=== PATIENT | female | born 1980 | race Caucasian/White ===

== ENCOUNTER 2020-05-14 22:25 | Emergency (ER) | payer OTHER, SELFPAY ==
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
--- NOTE | ~2020-05-14 | US_ITS ---
EXAMINATION: US arterial duplex LE EXAM DATE: 05/15/2020 02:45 INDICATION: Abnormal CT with left common femoral arterial injury, dissection. TECHNIQUE: Left lower extremity arterial Doppler performed. Correlation is made to CT same date. FINDINGS: There is a left groin complex cystic region consistent with hematoma seroma measured at 10 .3 x 4.9 x 7.4 cm. No vascularity to this, no evidence of pseudoaneurysm. There is normal arterial signal Doppler waveform within the left common femoral artery. There is shor t segment dissection flap identified, with elevated velocity at this location of 233 cm/s, probably d ue to narrowing of the true lumen. Otherwise the arterial Doppler velocities are within normal limits, reported in cm/s: CERTIFIED SURGICAL TECHNOLOGIST proximally 149, mid 151, distal 233, profunda 71, SFA proximally 95, mid 48, distally 32, popliteal 27, posterio r tibial 17, peroneal 11, anterior tibial 20, dorsalis pedis 20. IMPRESSION: Left common femoral arterial injury with short dissection flap. Overlying hematoma/serom a. Reviewed, dictated and finalized at location B. NDS/MAINTENANCE SPECIALIST IMPRESSION: Left common femoral arterial injury with short dissection flap. Ov erlying hematoma/seroma.
--- NOTE | ~2020-05-14 | XR_ITS ---
EXAMINATION: XR tibia fibula LT 2V INDICATION: Left leg pain TECHNIQUE: Two views of the left tibia and fibula are obtained. COMPARISON: None available FINDINGS: There is a healed oblique fracture of the distal tibia. No acute fracture, dislocation, or subluxation are identified. Alignment at the ankle and knee is normal. The soft tissues are unremarka ble. IMPRESSION: 1. No acute osseous abnormality. Reviewed, dictated and finalized at location A. FARM LABORER
[2020-05-14 22:34] VITALS: BP 129/64; PULSE 83; RESP 16; TEMP 36.2; O2SAT 98
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
[2020-05-14] MEDS: ONDANSETRON INJ 4 MG/2 ML VIAL IV PUSH (23:43)
[2020-05-14] MEDS: MORPHINE SULFATE (*CRX) 2 MG/ML INJ IV PUSH (23:43)
[2020-05-14 23:52] LABS: Basophils Absolute Auto 0.1 K/mm3 (0.0-0.1); Basophils Percent Auto 0.9 % (0.2-1.2); Eosinophils Absolute Auto 0.3 K/mm3 (0-0.3); Eosinophils Percent Auto 2.9 % (0-4.4); Hematocrit 33.5 % (37.0-47.0); Hemoglobin 10.8 g/dL (12.0-15.0); Immature Granulocyte Absolute 0.03 K/mm3 (0.00-0.031); Immature Granulocyte Percent A 0.3 % (0-0.5); Lymphocytes Absolute Auto 3.17 K/mm3 (0.9-3.2); Mean Corpuscular HGB Conc 32.2 g/dl (32-36); Mean Corpuscular Volume 90.1 fl (80-100); Monocytes Absolute Auto 0.8 K/mm3 (0.1-0.6); Monocytes Percent Auto 7.5 % (2.6-8.5); Neutrophils Absolute Auto 6.2 K/mm3 (1.3-6.7); Neutrophils Percent Auto 58.4 % (45.5-73.1); Platelet Count Result 379 k/mm3 (150-375); Red Blood Count 3.72 M/mm3 (4.2-5.4); Red Cell Distribution Width 14.7 % (11.5-14.5); White Blood Count 10.6 K/mm3 (4.5-10.0)
[2020-05-15 00:07] LABS: Alanine Aminotransferase 25 U/L (4-35); Albumin Level 4.1 g/dL (3.5-5.1); Alkaline Phosphatase 64 U/L (38-126); Anion Gap 6 mmol/L (8-16); Aspartate Amino Transferase 26 U/L (14-36); Bilirubin,Total 0.3 mg/dL (0.2-1.3); Blood Urea Nitrogen 18 mg/dL (7-17); Calcium 9.5 mg/dL (8.4-10.2); Carbon Dioxide 29 mmol/L (22-30); Chloride 104 mmol/L (98-107); Estimated CRCL calculation 96 ml/min; Estimated Glomerular Filt Rate > 60; Glucose 95 mg/dL (65-105); Potassium 3.9 mmol/L (3.4-5.0); Sodium 139 mmol/L (137-145)
[2020-05-15] MEDS: HYDROmorphone HCL INJ (*CRX) 1 MG/ML SYR 0.5 MG IV PUSH ×2 (01:06→03:36)
[2020-05-15] MEDS: HYDROcodone/acetaminophen (*CRX) 5-325 MG TABLET 1 TAB PO (01:06)
[2020-05-15 03:43] VITALS: BP 128/72; PULSE 78; RESP 16; O2SAT 99
== END 2020-05-15 04:05 | disposition home or self-care (01) ==
PROVIDERS: Emergency Provider Emergency Medicine
DX: S30.1XXA Contusion of abdominal wall, initial encounter (principal); V86.55XA Driver of 3- or 4- wheeled all-terrain vehicle (ATV) injured in nontraffic accident, initial encounter
CPT/HCPCS: 36415; 73590; 74177; 80053; 85025; 93926; 96374; 96375; 96376; 99284; A9270; J1170; J2270; J2405; Q9967

== ENCOUNTER 2021-12-25 09:35 | Inpatient (IN) | payer OTHER, SELFPAY ==
--- NOTE | ~2021-12-25 | CT_ITS ---
EXAMINATION: CT abdomen pelvis wo con DATE: 12/27/2021 10:05 INDICATION: persistant upper mid abd pain radiating to the left TECHNIQUE: Computed tomography (CT) of the abdomen and pelvis was performed without intravenous contr ast. Automated exposure control and iterative reconstruction technique were employed. The dose-length product was 793.12 mGy-cm. COMPARISON: 12/25/2021. FINDINGS: Lower thorax: Unremarkable Liver: Normal. Biliary/Gallbladder: Gallbladder is normal. Spurious contrast excretion. No bile duct dilation. Pancreas: Cystic lesion in the pancreatic body, stable given change in technique. Slightly increased peripancreatic inflammatory change/fluid. Spleen: Normal. Adrenals:Stable low-density left adrenal lesions. Kidneys: Multiple bilateral renal calculi. No mass or hydronephrosis. GI tract: No small or large bowel dilation. Normal appendix. Mesentery/Peritoneum: No ascites, mass, or free air. Retroperitoneum: No mass. Pelvis: Pelvic organs are within normal limits. Soft Tissues: Soft tissues and body wall unremarkable. Bones: No acute osseous finding. IMPRESSION: Slightly increased peripancreatic inflammatory change/fluid. Likely pseudocyst in the pancreatic body , stable. Reviewed, dictated and finalized at location K. IMPRESSION: Slightly increased peripancreatic inflammatory change/fluid. Likely pseudocyst in the pancreatic body, stable.
--- NOTE | ~2021-12-25 | US_ITS ---
EXAMINATION: US abdomen limited DATE: 12/25/2021 15:45 INDICATION: Pancreatitis. TECHNIQUE: Multiple grayscale and Doppler ultrasound images of the abdomen were obtained. COMPARISON: CT 12/25/2021 FINDINGS: The visualized portions of the head and body of the pancreas are normal. The liver is cisco l without focal lesion. There is normal flow in main portal vein. The gallbladder is normal in size. No gallstones or gallbladder wall thickening. There was no sonographic Poole sign. The common duct i s normal and measures 4 mm. There are nonobstructing stones in right kidney. IMPRESSION: 1. Normal gallbladder and common duct. Reviewed, dictated and finalized at location B.
--- NOTE | ~2021-12-25 | XR_ITS ---
EXAMINATION: XR chest 2V 12/25/2021 10:15 INDICATION: Shortness of breath. Right lateral chest pain. PROCEDURE: 2 view chest COMPARISON: No prior studies for comparison. FINDINGS: The lungs are clear. The cardiomediastinal silhouette is within normal limits. There are no pleural effusions. There is no pneumothorax suspected. IMPRESSION: 1: NO ACUTE CARDIOPULMONARY DISEASE. Reviewed, dictated and finalized at location A.
--- NOTE | ~2021-12-25 | CT_ITS ---
EXAMINATION: CTA chest PE abdomen pel DATE: 12/25/2021 11:12 INDICATION: Chest pain and dyspnea TECHNIQUE: Computed tomography (CT) pulmonary angiogram of the chest was performed with 100 mL Omnipa que-350 intravenous contrast. Additional 3D reconstructions utilizing coronal maximum intensity proje ction (MIP) were performed. CT of the abdomen and pelvis was performed with intravenous contrast util izing the same contrast bolus following a short delay. Automated exposure control and iterative recon struction technique were employed. The dose-length product was 1322.43 mGy-cm. COMPARISON: None FINDINGS: Chest: Excellent contrast opacification of the pulmonary arteries. There is mild streak artifact from dense contrast in the superior vena cava and right atrium. No significant motion artifact yielding diagnost ic quality study which demonstrates no pulmonary embolism. No pneumonia, suspicious pulmonary nodules , pulmonary edema or pleural effusion. Heart size is normal. No pericardial or pleural effusion. No p athologically enlarged thoracic lymphadenopathy. Wall thickening in the distal esophagus which could be seen with esophagitis. Bones are unremarkable. Abdomen/pelvis: Liver, gallbladder and spleen are normal. Increase in size of a now 2.1 cm cystic lesion without enha ncing soft tissue component in the body of the pancreas. There is inflammatory stranding surrounding the body and tail of the pancreas consistent with acute interstitial pancreatitis suggesting the cyst ic lesion represents a pseudocyst. Diffuse adrenal nodules the largest measuring 1.9 cm at the left a drenal gland with additional 7 mm nodular left adrenal gland and 6 mm nodule in the right adrenal gla nd. 1.8 cm left renal cyst. Bilateral nonobstructing nephrolithiasis with 8 stones in the right kidne y the largest measuring up to 6 mm and 11 stones in the left kidney the largest measuring 8 mm. Urete rs and bladder are normal with no evident urolithiasis. Anteverted uterus is normal with mild scarrin g in the fat anterior to the uterus and intrapelvic wall suggesting prior section. Bones are normal. No free intraperitoneal gas or fluid. No pathologically enlarged abdominal or pelvic lymphad enopathy. Unchanged right supra-acetabular bone island. 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 IMPRESSION: 1. No pulmonary disease or other acute cardiopulmonary disease. 2. Acute interstitial pancreatitis with interval enlargement of a 2.1 cm cystic lesion at the body of the pancreas most likely a pancreatic pseudocyst. 3. Bilateral nonobstructing nephrolithiasis. 4. Wall thickening in the distal esophagus suggesting esophagitis. Reviewed, dictated and finalized at location A.
[2021-12-25 09:39] VITALS: BP 142/86; PULSE 77; RESP 13; TEMP 36.6; O2SAT 100
--- NOTE | 2021-12-25 09:39 | ECG_ITS ---
Measurements Intervals [place] Rate: 75 P: -11 LA: 136 QRS: 20 QRSD: 113 T: 12 QT: 364 QTc: 407 Interpretive Statements SINUS RHYTHM INCOMPLETE RIGHT BUNDLE BRANCH BLOCK [90+ ms QRS DURATION, TERMINAL R IN V1/V2, 40+ ms S IN I/aVL/V4/V5/V6] NO PREVIOUS ECG AVAILABLE FOR COMPARISON Electronically Signed On 12-25-2021 14:40:34 CDT by Fran Rogers M.D.
--- NOTE | 2021-12-25 10:01 | ED.GENADULT ---
HPI - General Adult General Chief complaint: Shortness of Breath/Dyspnea Stated complaint: SOB Time Seen by Provider: 12/25/21 09:41 Source: RN notes reviewed History of Present Illness HPI narrative: Patient presents emergency department from home for shortness of breath. Patient states that shortness of breath began today afternoon she states it feels like she cannot take a deep breath and associated with a tightness across her lower chest patient states that she did have coughing last week but is not had any coughing this week she denies any fevers or chills abdominal pain nausea vomiting diarrhea or any other symptoms. Related Data Home Medications Medication Instructions Recorded Confirmed ibuprofen 200 mg capsule 200 mg PO Q6H PRN 05/19/20 05/23/20 Allergies Allergy/AdvReac Type Severity Reaction Status Date / Time No Known Allergies Allergy Verified 12/25/21 09:44 Review of Systems Review of Systems: Gen.: Denies fevers or chills ENT: Denies congestion Respiratory: See HPI CV: Reports chest pain GI: Denies abdominal pain nausea, emesis or diarrhea Musculoskeletal: Denies back pain or muscle pain Neuro: Denies numbness, tingling, weakness or focal weakness Skin: Denies rash Except as documented, all other systems reviewed and negative PMFSH Past Medical History Medical History History of kidney stones Surgical History Surgical History History of delivery x2 History of removal of cyst neck Family History Family History Father , age 58 Diabetes mellitus Lymphoma Grandparent , age 93 Heart disease Cerebrovascular accident Social History Social History Smoking status: Never smoker Alcohol intake: never Additional occupation/education comments: Nurse Exam Narrative: APPEARANCE: No acute distress, nontoxic, resting in bed EYES: EOMI HEENT: Normocephalic, atraumatic, OMM RESPIRATORY: No respiratory distress Clear to auscultation bilaterally with no rhonchi wheezing or rales. CARDIOVASCULAR: Regular rate and rhythm without murmurs rubs or gallops. ABDOMINAL: Soft, nontender, nondistended, no rebound or guarding MUSCULOSKELETAl: Moves all extremities. No clubbing, cyanosis or edema. NEURO: Awake and alert. Following commands, speech normal, no focal deficits SKIN:: Warm, dry. No rashes lesions or abrasions PSYCHIATRIC: Normal affect/mood, Course Course Emergency Course: Following lab results are discussed with patient she denies any regular alcohol use states she has been having increased ibuprofen use secondary to back pain and menstrual cycle Discussed with Dr. Celis who agrees with admission request GI consult Discussed with Dr Galindo agrees with consult Discussed with patient and family results of workup and diagnosis. Discussed need for admission. Patient and family understand and agree to current treatment plan Vital Signs Vital signs: Vital Signs Temperature 98 F 12/25/21 09:39 Pulse Rate 77 12/25/21 09:39 Respiratory Rate 13 12/25/21 09:39 Blood Pressure 142/86 H 12/25/21 09:39 Pulse Oximetry 100 12/25/21 09:39 Oxygen Delivery Room Air 12/25/21 09:39 Temperature 98 F 12/25/21 09:39 Pulse Rate 77 12/25/21 09:39 Respiratory Rate 13 12/25/21 09:39 Blood Pressure 142/86 H 12/25/21 09:39 Pulse Oximetry 100 12/25/21 09:39 Oxygen Delivery Room Air 12/25/21 09:39 Medical Decision Making Vital Signs Vital Signs: Vital Signs Temperature 98 F 12/25/21 09:39 Pulse Rate 77 12/25/21 09:39 Respiratory Rate 13 12/25/21 09:39 Blood Pressure 142/86 H 12/25/21 09:39 Pulse Oximetry 100 12/25/21 09:39 Oxygen Delivery Room Air 12/25/21 09:39 Temperature
[2021-12-25 10:09] LABS: Basophils Absolute Auto 0.1 K/mm3 (0.0-0.1); Basophils Percent Auto 0.5 % (0.2-1.2); Eosinophils Absolute Auto 0.1 K/mm3 (0-0.3); Eosinophils Percent Auto 0.8 % (0-4.4); Hematocrit 36.5 % (37.0-47.0); Hemoglobin 11.8 g/dL (12.0-15.0); Immature Granulocyte Absolute 0.03 K/mm3 (0.00-0.031); Immature Granulocyte Percent A 0.3 % (0-0.5); Lymphocytes Absolute Auto 1.86 K/mm3 (0.9-3.2); Lymphocytes Percent Auto 18.3 % (18.3-44.2); Mean Corpuscular HGB Conc 32.3 g/dl (32-36); Mean Corpuscular Hemoglobin 28.6 pg (26-34); Mean Corpuscular Volume 88.4 fl (80-100); Mean Platelet Volume 10.4 fl (7.4-10.4); Monocytes Absolute Auto 0.8 K/mm3 (0.1-0.6); Monocytes Percent Auto 7.5 % (2.6-8.5); Neutrophils Absolute Auto 7.4 K/mm3 (1.3-6.7); Neutrophils Percent Auto 72.6 % (45.5-73.1); Platelet Count Result 344 k/mm3 (150-375); Red Blood Count 4.13 M/mm3 (4.2-5.4); Red Cell Distribution Width 13.6 % (11.5-14.5); White Blood Count 10.2 K/mm3 (4.5-10.0)
[2021-12-25 10:18] LABS: INR 0.9; Prothrombin Time 12.1 Seconds (11.1-14.7)
[2021-12-25 10:19] LABS: Partial Thromboplastin Time 30.6 SECONDS (22.3-36.8)
[2021-12-25 10:22] LABS: Alanine Aminotransferase 20 U/L (6-35); Albumin Level 4.3 g/dL (3.5-5.1); Alkaline Phosphatase 96 U/L (38-126); Anion Gap 3 mmol/L (8-16); Aspartate Amino Transferase 25 U/L (14-36); Bilirubin,Total 0.4 mg/dL (0.2-1.3); Blood Urea Nitrogen 13 mg/dL (7-17); Calcium 9.5 mg/dL (8.4-10.2); Carbon Dioxide 25 mmol/L (22-30); Chloride 111 mmol/L (98-107); Estimated CRCL calculation 106 ml/min; Estimated Glomerular Filt Rate > 60; Glucose 112 mg/dL (65-110); Potassium 3.9 mmol/L (3.4-5.0); Sodium 139 mmol/L (137-145)
[2021-12-25 10:33] LABS: Troponin I < 0.012 ng/mL (0.000-0.034)
[2021-12-25 10:58] LABS: Lipase 4369 U/L (23-300)
[2021-12-25] MEDS: MORPHINE SULFATE (*CRX) 4 MG/ML INJ IV PUSH (11:25)
[2021-12-25] MEDS: SODIUM CHLORIDE 0.9% IV 1,000 ML 999 ML IV CONT (11:25)
[2021-12-25 11:49] VITALS: BP 140/68; PULSE 78; RESP 18; O2SAT 99
--- NOTE | 2021-12-25 11:55 | PM.IMHP ---
H&P: HPI History of Present Illness Date/Time: 12/25/21 11:55 Chief Complaint: Shortness of breath and dyspnea Narrative: Patient is a 41-year-old female with a past medical history of renal stones. Patient presented to the emergency department with complaints of shortness of breath. She reports that the shortness of breath began this afternoon as she is unable to take a deep breath and associated with tightness across her lower chest. Patient report indicates she has a cough for the last week but nonproductive. She denies any fever, chills, nausea, vomiting upset stomach or diarrhea. While in the emergency department labs and imaging were obtained. Patient had a WBC of 10.2, hemoglobin 11.8, hematocrit 36.5, platelet 344, normal INR and PT. D-dimer mildly elevated at 0.5 and a sodium of 139, potassium 3.9, chloride 111, BUN 13, creatinine 0.7 and normal LFTs with a negative troponin. Chest x-ray did not reveal acute cardiopulmonary abnormality. CTA of the chest abdomen and pelvis did not reveal acute pulmonary disease. Did reveal acute interstitial pancreatitis with interval enlargement of 2.1 cm cystic lesion at the body of the pancreas most likely pancreatic pseudocyst. Bilateral nonobstructing nephrolithiasis some wall thickening the distal esophagus suggesting esophagitis. Dr. Artis with gastroenterology was consulted and will follow in consultation at upon admission. Patient endorsed increase ibuprofen use due to back pain and menstrual cycles. She denies any alcohol use. Patient did have an elevated lipase of 4369. Gastroenterology is following the patient. Patient will be made NPO and administered IV fluids. 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 Mental Status: Awake, alert and oriented to person, place, and time with clear speech. Skin: Skin in warm, dry and intact without rashes or lesions. Head: Normocephalic and atraumatic. Eyes: Conjunctivae are clear without exudates or hemorrhage. Sclera is non-icteric. EOM are intact, PERRLA. Ears: The external ear and canal are non-tender and without swelling or discharge. Nose: Nasal mucosa is pink and moist. Septum midline. Nares patent bilaterally. Throat: Oral mucosa pink and moist with good dentition. Tongue midline. Neck: The neck supple without adenopathy. Trachea midline. No JVD. Cardiac: S1 and S2 regular rate and rhythm. No murmurs, gallops, or rubs auscultated. Respiratory: Chest wall symmetric, nontender and without deformity or trauma. Respirations even and unlabored. Lung sounds are clear to auscultation in all lobes bilaterally without wheezes
[2021-12-25] MEDS: MORPHINE SULFATE (*CRX) 2 MG/ML INJ IV PUSH (13:02)
[2021-12-25] MEDS: SODIUM CHLORIDE 0.9% IV 1,000 ML 150 ML IV CONT (13:06)
[2021-12-25] MEDS: ONDANSETRON INJ 4 MG/2 ML VIAL IV PUSH ×2 (13:10→18:35)
[2021-12-25] MEDS: HYDROmorphone HCL INJ (*CRX) 1 MG/ML SYR 0.5 MG IV PUSH ×4 (13:55→23:17)
--- NOTE | 2021-12-25 14:03 | WPDGICN ---
Assessment and Plan Assessment and plan (1) Acute pancreatitis: Code(s): K85.90 - Acute pancreatitis without necrosis or infection, unspecified Status: Acute Assessment and Plan: In the emergency room she was found have pancreatitis with an elevated lipase, 4369. CT scan confirms pancreatitis. She states that she was in [place] last weekend. She was shopping in eating a little more than usual, enjoying the restaurants. She was not drinking any alcohol and affect does not drink at all. She states that on Tuesday she began having a twisting type feeling in the subxiphoid area as though something was being twisted. The pain persisted all week. She began taking ibuprofen several times a day thinking that would help. By yesterday the pain was also being felt across her back. It is continuous. She tried eating but has not eaten much this week because it hurts worse when she does eat. because she does not drink alcohol, gallbladder disease is a high probability. I will order an ultrasound of the right upper quadrant. Also I will check her lipids and antinuclear antibody. (2) History of kidney stones: Code(s): Z87.442 - Personal history of urinary calculi Status: Acute Assessment and Plan: She states that when the pain 1st began she was having some discomfort in the suprapubic area and thought that it may be related to her history of kidney stones but after taking a couple of doses of antibiotic that pain went away and has not returned GI Consult Note Consult date/time: 12/25/21 14:03 HPI: Elizabeth Capone is a 41 year old female was admitted with acute abdominal pain which began 5 days ago. In the emergency room she was found have pancreatitis with an elevated lipase, 4369. CT scan confirms pancreatitis. She states that she was in [place] last weekend. She was shopping in eating a little more than usual, enjoying the restaurants. She was not drinking any alcohol and affect does not drink at all. She states that on Tuesday she began having a twisting type feeling in the subxiphoid area as though something was being twisted. The pain persisted all week. She began taking ibuprofen several times a day thinking that would help. By yesterday the pain was also being felt across her back. It is continuous. She tried eating but has not eaten much this week because it hurts worse when she does eat. She has not been vomiting but isn't nauseated. There has been no diarrhea. She has not had a fever or chills. She has no prior episodes of pancreatitis. She has no family history of gallbladder or pancreatic disease. Her weight has been stable. She denies other gastrointestinal symptoms such as chronic acid reflux, Change in bowel habits, weight loss, etc.. 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
[2021-12-25 14:21] LABS: Cholesterol 220 mg/dL (0-200); HDL Direct 39 mg/dL; Triglycerides 143 mg/dL (<150)
[2021-12-25 14:32] LABS: LDL Cholesterol Direct 148 mg/dL
[2021-12-25 14:33] VITALS: BMI 31.3
--- NOTE | 2021-12-25 14:36 | ADMGEN ---
This patient, Elizabeth Capone, was admitted to [facility] Surg Room 310-00 [id number]. Patient/family oriented to hospital policies and general routines including ID bracelet, bed and alarms, visiting hours, pain management, procedures, bathroom and other care routines, personal items, smoking policy, room service/diet, and visiting hours. Information on how to activate the Rapid Response Team has been discussed. Patient/Family are encouraged to report perceived risks to care and to ask questions if they do not understand what they are told or what they should do.
[2021-12-25 14:55] VITALS: BP 137/76; PULSE 77; RESP 18; TEMP 36.3; O2SAT 99
[2021-12-25 18:45] LABS: Add Urine Microscopic? YES; Appearance Urine Slightly Cloudy (Clear); Bilirubin Urine Negative (Negative); Blood Urine 2+ (Negative); Color Urine Yellow (Yellow); Glucose Urine UA Negative (Negative); Ketones Urine Negative (Negative); Leukocyte Esterase Ur Negative LEU/UL (NEGATIVE); Nitrate Urine Negative (Negative); Protein Urine Negative (Negative); Urobilinogen Urine 0.2 mg/dL (<2.0)
[2021-12-25 18:49] LABS: Mucus Urine Rare /lpf; RBC Urine 21-50 /hpf (0-2); Squamous Epithelial Cell Urine Many /hpf (Few); WBC Urine 0-3 /hpf (0-3)
[2021-12-25 20:35] VITALS: BP 125/80; PULSE 76; RESP 20; TEMP 36.4; O2SAT 98
[2021-12-26] MEDS: SODIUM CHLORIDE 0.9% IV 1,000 ML 150 ML IV CONT ×4 (01:00→21:20)
[2021-12-26] MEDS: HYDROmorphone HCL INJ (*CRX) 1 MG/ML SYR 0.5 MG IV PUSH ×5 (02:33→21:20)
[2021-12-26 05:50] VITALS: BP 133/79; PULSE 88; RESP 18; TEMP 36.7; O2SAT 99
[2021-12-26 06:04] LABS: Basophils Percent Auto 0.3 % (0.2-1.2); Eosinophils Percent Auto 0.3 % (0-4.4); Hematocrit 35.7 % (37.0-47.0); Hemoglobin 11.5 g/dL (12.0-15.0); Immature Granulocyte Absolute 0.04 K/mm3 (0.00-0.031); Immature Granulocyte Percent A 0.3 % (0-0.5); Lymphocytes Absolute Auto 1.37 K/mm3 (0.9-3.2); Lymphocytes Percent Auto 11.7 % (18.3-44.2); Mean Corpuscular HGB Conc 32.2 g/dl (32-36); Mean Corpuscular Hemoglobin 28.8 pg (26-34); Mean Corpuscular Volume 89.5 fl (80-100); Mean Platelet Volume 10.8 fl (7.4-10.4); Monocytes Absolute Auto 0.9 K/mm3 (0.1-0.6); Monocytes Percent Auto 7.6 % (2.6-8.5); Neutrophils Absolute Auto 9.4 K/mm3 (1.3-6.7); Neutrophils Percent Auto 79.8 % (45.5-73.1); Platelet Count Result 333 k/mm3 (150-375); Red Blood Count 3.99 M/mm3 (4.2-5.4); Red Cell Distribution Width 13.4 % (11.5-14.5); White Blood Count 11.7 K/mm3 (4.5-10.0)
[2021-12-26 06:23] LABS: Alanine Aminotransferase 17 U/L (6-35); Albumin Level 4.2 g/dL (3.5-5.1); Alkaline Phosphatase 89 U/L (38-126); Anion Gap 5 mmol/L (8-16); Aspartate Amino Transferase 19 U/L (14-36); Bilirubin,Total 0.6 mg/dL (0.2-1.3); Blood Urea Nitrogen 7 mg/dL (7-17); Calcium 8.6 mg/dL (8.4-10.2); Carbon Dioxide 28 mmol/L (22-30); Chloride 107 mmol/L (98-107); Estimated CRCL calculation 122 ml/min; Estimated Glomerular Filt Rate > 60; Glucose 103 mg/dL (65-110); Lipase 590 U/L (23-300); Potassium 3.7 mmol/L (3.4-5.0); Sodium 140 mmol/L (137-145)
[2021-12-26] MEDS: ONDANSETRON INJ 4 MG/2 ML VIAL IV PUSH ×2 (08:24→21:20)
--- NOTE | 2021-12-26 08:58 | PM.DS ---
DS: Admitting Diagnosis Discharge Date 12/28/2021 Admitting Diagnosis Pancreatitis DS: Discharge Diagnosis Discharge Diagnosis (1) Acute pancreatitis: Code(s): K85.90 - Acute pancreatitis without necrosis or infection, unspecified Status: Acute Assessment and Plan: Monitor vital signs, I and O's, check stool output, neuro status and patient is a fall risk Monitor serum electrolytes and CBC IV pain management Gentle IV fluid resuscitation Consult gastroenterology for further evaluation, appreciate assistance and recommendation Diet:NPO Diet was advanced and tolerated (2) Dyspnea: Code(s): R06.00 - Dyspnea, unspecified Status: Acute Assessment and Plan: Resolving (3) Pancreatic pseudocyst: Code(s): K86.3 - Pseudocyst of pancreas Status: Acute DS: Summary Hospital Course Reason for hospitalization: Acute pancreatitis Hospital Course: Patient is a 41-year-old female with a past medical history of renal stones.? Patient presented to the emergency department with complaints of shortness of breath.? She reports that the shortness of breath began this afternoon as she is unable to take a deep breath and associated with tightness across her lower chest.? Patient report indicates she has a cough for the last week but nonproductive.? She denies any fever, chills, nausea, vomiting upset stomach or diarrhea. While in the emergency department labs and imaging were obtained.? Patient had a WBC of 10.2, hemoglobin 11.8, hematocrit 36.5, platelet 344, normal INR and PT.? D-dimer mildly elevated at 0.5 and a sodium of 139, potassium 3.9, chloride 111, BUN 13, creatinine 0.7 and normal LFTs with a negative troponin.? Chest x-ray did not reveal acute cardiopulmonary abnormality.? CTA of the chest abdomen and pelvis did not reveal acute pulmonary disease.? Did reveal acute interstitial pancreatitis with interval enlargement of 2.1 cm cystic lesion at the body of the pancreas most likely pancreatic pseudocyst.? Bilateral nonobstructing nephrolithiasis some wall thickening the distal esophagus suggesting esophagitis.? Dr. Artis with gastroenterology was consulted and will follow in consultation at upon admission.? Patient endorsed increase ibuprofen use due to back pain and menstrual cycles.? She denies any alcohol use.? Patient did have an elevated lipase of 4369.? Gastroenterology is following the patient.? Patient will be made NPO and administered IV fluids. Patient received aggressive IV fluid resuscitation at 150 mL an hour and remained NPO. Her lipase significantly decreased to 590. On the day of discharge the patient reported that she feels significantly better. Denied acute abdominal pain. She did report some dry heaves and headache due to no caffeine intake. Patient reports she drinks tea daily. Patient was started on a clear liquid diet advanced as tolerated. Advised to follow up with Gastroenterology and her primary care physician within 2-4 weeks. Status at Discharge Cognitive/behavioral status at discharge: Alert and oriented x4 Time Spent with Patient Time attestation: Total time spent providing and/or coordinating discharge services: Exam Narrative: General: No acute distress. Mental Status: Awake, alert and oriented to person, place, and time with clear speech. Skin: Skin in warm, dry and intact without rashes or lesions. Head: Normocephalic and atraumatic. Eyes: Conjunctivae are clear without exudates or hemorrhage. Sclera is non-icteric. EOM are intact, PERRLA. Ears: The external ear and canal are non-tender and without swelling or discharge. Nose: Nasal mucosa is pink and moist. Septum midline. Nares patent bilaterally. Throat: Oral mucosa pink and moist with good dentition. Tongue midline. Neck: The neck supple without adenopathy. Trachea midline. No JVD. Cardiac: S1 and S2 regular rate and rhythm. No murmurs, gallops, or rubs auscultated. Respiratory: Chest wall symmetric,
--- NOTE | 2021-12-26 12:43 | PM.IMPN ---
Progress Note: A&P Assessment and Plan (1) Acute pancreatitis: Code(s): K85.90 - Acute pancreatitis without necrosis or infection, unspecified Status: Acute Assessment and Plan: Monitor vital signs, I and O's, check stool output, neuro status and patient is a fall risk Monitor serum electrolytes and CBC IV pain management Gentle IV fluid resuscitation Consult gastroenterology for further evaluation, appreciate assistance and recommendation Diet:NPO Diet was advanced and tolerated (2) Dyspnea: Code(s): R06.00 - Dyspnea, unspecified Status: Acute Assessment and Plan: Resolving Subjective Date/time seen: 12/26/21 12:43 Attempt to advance the patient's diet. She was unable tolerate a diet without having acute abdominal pain. Made NPO. Continue IV fluids. Monitor lipase and patient's clinical status. Review of Systems Review of Systems: All systems reviewed & are unremarkable except as noted in HPI and below Exam Narrative: General: No acute distress. Mental Status: Awake, alert and oriented to person, place, and time with clear speech. Skin: Skin in warm, dry and intact without rashes or lesions. Head: Normocephalic and atraumatic. Eyes: Conjunctivae are clear without exudates or hemorrhage. Sclera is non-icteric. EOM are intact, PERRLA. Ears: The external ear and canal are non-tender and without swelling or discharge. Nose: Nasal mucosa is pink and moist. Septum midline. Nares patent bilaterally. Throat: Oral mucosa pink and moist with good dentition. Tongue midline. Neck: The neck supple without adenopathy. Trachea midline. No JVD. Cardiac: S1 and S2 regular rate and rhythm. No murmurs, gallops, or rubs auscultated. Respiratory: Chest wall symmetric, nontender and without deformity or trauma. Respirations even and unlabored. Lung sounds are clear to auscultation in all lobes bilaterally without wheezes, rhonchi, or rales. Abdominal: Abdomen soft, round and non- tender to palpation. Bowel sounds present and normoactive in all 4 quadrants. Spine: Neck and back with grossly normal curvature, no deformity in appearance or signs of trauma. Extremities: Upper and lower extremities atraumatic without tenderness or deformity. Full range of motion and muscle strength 5/5 to all extremities bilaterally. Neurological: Full and symmetric motor and light touch sensation bilaterally. Cranial nerves II-XII grossly intact. Objective Data Vital Signs Vital Signs: Vital Signs - 24 hr 12/25/21 14:55 12/25/21 20:35 12/26/21 05:50 Temperature 97.3 F L 97.5 F L 98.1 F Pulse Rate 77 76 88 Respiratory Rate 18 20 18 Blood Pressure 137/76 125/80 133/79 Pulse Oximetry 99 98 99 Oxygen Delivery 12/26/21 08:00 Temperature Pulse Rate Respiratory Rate Blood Pressure Pulse Oximetry Oxygen Delivery Room Air Intake/Output Intake/Output: Intake & Output 12/23/21 12/24/21 12/25/21 12/26/21 23:59 23:59 23:59 23:59 Intake Total 2000 1000 Output Total 400 1200 Balance 1600 -200 Meds/Results Medications: Active Medications Generic Name Dose Route Start Last Admin Trade Name Freq PRN Reason Stop Dose Admin Hydromorphone HCl 0.5 mg 12/25/21 13:47 12/26/21 12:12 Hydromorphone Hcl Inj (*Crx) 1 Mg/Ml Syr IV PUSH 0.5 mg Q3H PRN Administration Pain Rated 7-10 Sodium Chloride 1,000 mls @ 150 mls/hr 12/25/21 12:15 12/26/21 08:38 Normal Saline Iv IV CONT Not Given [facility] Ondansetron HCl 4 mg 12/25/21 17:37 12/26/21 08:24 Ondansetron Inj 4 Mg/2 Ml Vial IV PUSH 4 mg Q6H PRN Administration Nausea And Vomiting Radiology Results: ITS Impressions Chest X-Ray 12/25/21 10:21 IMPRESSION: 1: NO ACUTE CARDIOPULMONARY DISEASE. Chest/Abdomen/Pelvis CTA 12/25/21 11:14 IMPRESSION: 1. No pulmonary disease or other acute cardiopulmonary disease. 2. Acute interstitial pancreatitis with interval enlargement of a 2.1 cm cy
[2021-12-26 13:49] VITALS: BP 129/82; PULSE 88; RESP 14; TEMP 36.7; O2SAT 98
[2021-12-26 21:16] VITALS: BP 141/76; PULSE 94; RESP 18; TEMP 36.6; O2SAT 99
[2021-12-27] MEDS: HYDROmorphone HCL INJ (*CRX) 1 MG/ML SYR 0.5 MG IV PUSH ×5 (00:37→20:52)
[2021-12-27] MEDS: ONDANSETRON INJ 4 MG/2 ML VIAL IV PUSH ×4 (03:49→20:52)
[2021-12-27] MEDS: SODIUM CHLORIDE 0.9% IV 1,000 ML 150 ML IV CONT ×4 (03:50→23:50)
[2021-12-27 05:20] VITALS: BP 123/72; PULSE 67; RESP 17; TEMP 36.8; O2SAT 99
[2021-12-27 08:08] LABS: Basophils Percent Auto 0.3 % (0.2-1.2); Eosinophils Percent Auto 0.3 % (0-4.4); Hematocrit 31.3 % (37.0-47.0); Hemoglobin 10.3 g/dL (12.0-15.0); Immature Granulocyte Absolute 0.03 K/mm3 (0.00-0.031); Immature Granulocyte Percent A 0.3 % (0-0.5); Lymphocytes Absolute Auto 1.96 K/mm3 (0.9-3.2); Lymphocytes Percent Auto 20.9 % (18.3-44.2); Mean Corpuscular HGB Conc 32.9 g/dl (32-36); Mean Corpuscular Volume 88.2 fl (80-100); Mean Platelet Volume 10.7 fl (7.4-10.4); Monocytes Absolute Auto 0.7 K/mm3 (0.1-0.6); Monocytes Percent Auto 7.7 % (2.6-8.5); Neutrophils Absolute Auto 6.6 K/mm3 (1.3-6.7); Neutrophils Percent Auto 70.5 % (45.5-73.1); Platelet Count Result 319 k/mm3 (150-375); Red Blood Count 3.55 M/mm3 (4.2-5.4); Red Cell Distribution Width 13.2 % (11.5-14.5); White Blood Count 9.4 K/mm3 (4.5-10.0)
[2021-12-27 08:22] LABS: Alanine Aminotransferase 13 U/L (6-35); Albumin Level 3.5 g/dL (3.5-5.1); Alkaline Phosphatase 78 U/L (38-126); Anion Gap 1 mmol/L (8-16); Aspartate Amino Transferase 16 U/L (14-36); Bilirubin,Total 0.4 mg/dL (0.2-1.3); Blood Urea Nitrogen 5 mg/dL (7-17); Calcium 7.9 mg/dL (8.4-10.2); Carbon Dioxide 26 mmol/L (22-30); Chloride 110 mmol/L (98-107); Estimated CRCL calculation 144 ml/min; Estimated Glomerular Filt Rate > 60; Glucose 91 mg/dL (65-110); Lipase 725 U/L (23-300); Potassium 3.5 mmol/L (3.4-5.0); Sodium 137 mmol/L (137-145)
--- NOTE | 2021-12-27 08:56 | PM.IMPN ---
Progress Note: A&P Assessment and Plan (1) Acute pancreatitis: Code(s): K85.90 - Acute pancreatitis without necrosis or infection, unspecified Status: Acute Assessment and Plan: Monitor vital signs, I and O's, check stool output, neuro status and patient is a fall risk Monitor serum electrolytes and CBC IV pain management Continue IV fluid resuscitation Consult gastroenterology for further evaluation, appreciate assistance and recommendation Diet:NPO Diet was advanced and tolerated Repeat CT of the abdomen and pelvis Lipase minimally increased (2) Dyspnea: Code(s): R06.00 - Dyspnea, unspecified Status: Acute Assessment and Plan: Resolved (3) Esophagitis: Code(s): K20.90 - Esophagitis, unspecified without bleeding Status: Acute Assessment and Plan: Started on PPI Subjective Date/time seen: 12/27/21 08:56 Interval history: Patient continues to be year for acute pancreatitis. Patient reported yesterday morning that she was free from pain and attempted to have a clear liquid diet. A clear liquid diet had failed. The patient was remained NPO again. Ultrasound of the gallbladder appeared normal with a normal common bile duct as well. CTA of the chest abdomen and pelvis reviewed again. Gastroenterology to evaluate the patient again today given the patient's persistent epigastric pain. She was started on Protonix. She denies any bowel movements. She is belching frequently. Review of Systems Review of Systems: All systems reviewed & are unremarkable except as noted in HPI and below Objective Data Vital Signs Vital Signs: Vital Signs - 24 hr 12/26/21 13:49 12/26/21 21:16 12/27/21 05:20 Temperature 98.0 F 97.9 F 98.2 F Pulse Rate 88 94 67 Respiratory Rate 14 18 17 Blood Pressure 129/82 141/76 H 123/72 Pulse Oximetry 98 99 99 Intake/Output Intake/Output: Intake & Output 12/24/21 12/25/21 12/26/21 12/27/21 23:59 23:59 23:59 23:59 Intake Total 2000 3000 1000 Output Total 400 2650 700 Balance 1600 350 300 Meds/Results Medications: Active Medications Generic Name Dose Route Start Last Admin Trade Name Freq PRN Reason Stop Dose Admin Hydromorphone HCl 0.5 mg 12/25/21 13:47 12/27/21 03:49 Hydromorphone Hcl Inj (*Crx) 1 Mg/Ml Syr IV PUSH 0.5 mg Q3H PRN Administration Pain Rated 7-10 Sodium Chloride 1,000 mls @ 150 mls/hr 12/25/21 12:15 12/27/21 03:50 Normal Saline Iv IV CONT 150 mls/hr .Q6H40M [facility] Administration Ondansetron HCl 4 mg 12/25/21 17:37 12/27/21 03:49 Ondansetron Inj 4 Mg/2 Ml Vial IV PUSH 4 mg Q6H PRN Administration Nausea And Vomiting Radiology Results: ITS Impressions Chest X-Ray 12/25/21 10:21 IMPRESSION: 1: NO ACUTE CARDIOPULMONARY DISEASE. Chest/Abdomen/Pelvis CTA 12/25/21 11:14 IMPRESSION: 1. No pulmonary disease or other acute cardiopulmonary disease. 2. Acute interstitial pancreatitis with interval enlargement of a 2.1 cm cystic lesion at the body of the pancreas most likely a pancreatic pseudocyst. 3. Bilateral nonobstructing nephrolithiasis. 4. Wall thickening in the distal esophagus suggesting esophagitis. Abdomen Ultrasound 12/25/21 15:51 IMPRESSION: 1. Normal gallbladder and common duct. Labs Labs: Laboratory Results - last 24 hr 12/27/21 12/27/21 07:43 07:43 WBC 9.4 RBC 3.55 L Hgb 10.3 L Hct 31.3 L MCV 88.2 MCH 29.0 MCHC 32.9 RDW 13.2 Plt Count 319 MPV 10.7 H Immature Gran % (Auto) 0.3 Neut % (Auto) 70.5 Lymph % (Auto) 20.9 Adams % (Auto) 7.7 Eos % (Auto) 0.3 Baso % (Auto) 0.3 Lymph # (Auto) 1.96 Adams # (Auto) 0.7 H Eos # (Auto) 0.0 Baso # (Auto) 0.0 Abs Immat Gran (auto) 0.03 Absolute Neuts (auto) 6.6 Absolute Nucleated RBC 0.0 Nucleated RBC % 0.0 Sodium 137 Potassium 3.5 Chloride 110 H Carbon Dioxide 26 Anion Gap 1 L BUN 5 L Creatinine 0
[2021-12-27 09:42] LABS: SPREG INTERNAL CONTROL Positive; Serum Qual hCG Negative
[2021-12-27] MEDS: PANTOPRAZOLE SODIUM IV 40 MG VIAL IV PUSH (09:51)
--- NOTE | 2021-12-27 11:04 | WPDGIPROGNO ---
Progress Note: A&P Assessment and Plan (1) Acute pancreatitis: Code(s): K85.90 - Acute pancreatitis without necrosis or infection, unspecified Status: Acute Assessment and Plan: Patient with acute pancreatitis. Appears to be idiopathic in nature. Patient continues to have pain with dietary intake. Plan to allow ice chips and advance very slowly with liquids. Continue pain control. In general limiting diet may help her pain over the next several days. Pseudocyst seen on initial CT scan may contribute to some prolongation of pain and will need follow-up after an interval. Typically we allow 6 months for these to resolved. At present continue supportive care with pain control and very slow increase in diet. Continue monitor lipase lipase 725 today. (2) Pancreatic pseudocyst: Code(s): K86.3 - Pseudocyst of pancreas Status: Acute Assessment and Plan: Patient noted to have pseudocyst on initial CT scan imaging. Likely small in present should resolve on its own. But follow-up CT scan in a month or 2 May be beneficial. Subjective Date/time seen: 12/27/21 11:04 Patient continues to note upper abdominal pain. Somewhat worse after eating diet yesterday. She required pain injections feels comfortable after pain shot today. Patient denies any fever. Bowel habits apparently are okay. Review of Systems Review of Systems: Review of systems noncontributory. Objective Data Vital Signs Vital Signs: Vital Signs - 24 hr 12/26/21 13:49 12/26/21 21:16 12/27/21 05:20 Temperature 98.0 F 97.9 F 98.2 F Pulse Rate 88 94 67 Respiratory Rate 14 18 17 Blood Pressure 129/82 141/76 H 123/72 Pulse Oximetry 98 99 99 Oxygen Delivery 12/27/21 08:00 Temperature Pulse Rate Respiratory Rate Blood Pressure Pulse Oximetry Oxygen Delivery Room Air Intake/Output Intake/Output: Intake & Output 12/24/21 12/25/21 12/26/21 12/27/21 23:59 23:59 23:59 23:59 Intake Total 2000 3000 2000 Output Total 400 2650 700 Balance 5368 002 5408 Meds/Results Medications: Active Medications Generic Name Dose Route Start Last Admin Trade Name Freq PRN Reason Stop Dose Admin Hydromorphone HCl 0.5 mg 12/25/21 13:47 12/27/21 09:51 Hydromorphone Hcl Inj (*Crx) 1 Mg/Ml Syr IV PUSH 0.5 mg Q3H PRN Administration Pain Rated 7-10 Sodium Chloride 1,000 mls @ 150 mls/hr 12/25/21 12:15 12/27/21 10:14 Normal Saline Iv IV CONT 150 mls/hr .Q6H40M [facility] Ondansetron HCl 4 mg 12/25/21 17:37 12/27/21 09:52 Ondansetron Inj 4 Mg/2 Ml Vial IV PUSH 4 mg Q6H PRN Administration Nausea And Vomiting Pantoprazole Sodium 40 mg 12/27/21 09:00 12/27/21 09:51 Pantoprazole Sodium Iv 40 Mg Vial IV PUSH 40 mg QAM [facility] Administration Radiology Results: ITS Impressions Chest X-Ray 12/25/21 10:21 IMPRESSION: 1: NO ACUTE CARDIOPULMONARY DISEASE. Chest/Abdomen/Pelvis CTA 12/25/21 11:14 IMPRESSION: 1. No pulmonary disease or other acute cardiopulmonary disease. 2. Acute interstitial pancreatitis with interval enlargement of a 2.1 cm cystic lesion at the body of the pancreas most likely a pancreatic pseudocyst. 3. Bilateral nonobstructing nephrolithiasis. 4. Wall thickening in the distal esophagus suggesting esophagitis. Abdomen Ultrasound 12/25/21 15:51 IMPRESSION: 1. Normal gallbladder and common duct. Labs Labs: Laboratory Results - last 24 hr 12/27/21 12/27/21 12/27/21 07:43 07:43 09:19 WBC 9.4 RBC 3.55 L Hgb 10.3 L Hct 31.3 L MCV 88.2 MCH 29.0 MCHC 32.9 RDW 13.2 Plt Count 319 MPV 10.7 H Immature Gran % (Auto) 0.3 Neut % (Auto) 70.5 Lymph % (Auto) 20.9 [place] % (Auto) 7.7 Eos % (Auto) 0.3 Baso % (Auto) 0.3 Lymph # (Auto) 1.96 [place] # (Auto) 0.7 H Eos # (Auto) 0.0 Baso # (Auto) 0.0 Abs Immat Gran (auto) 0.03 Absolute Neuts (auto) 6.6 Absolute
[2021-12-27 14:00] VITALS: BP 122/75; PULSE 80; RESP 18; TEMP 36.3; O2SAT 99
[2021-12-27 22:00] VITALS: BP 136/74; PULSE 89; RESP 18; TEMP 36.6; O2SAT 99
[2021-12-28] MEDS: HYDROmorphone HCL INJ (*CRX) 1 MG/ML SYR 0.5 MG IV PUSH ×4 (01:00→13:54)
[2021-12-28] MEDS: SODIUM CHLORIDE 0.9% IV 1,000 ML 150 ML IV CONT ×2 (05:39→11:55)
[2021-12-28 06:00] VITALS: BP 147/74; PULSE 89; RESP 18; TEMP 36.3; O2SAT 99
[2021-12-28] MEDS: PANTOPRAZOLE SODIUM IV 40 MG VIAL IV PUSH (08:29)
[2021-12-28] MEDS: ONDANSETRON INJ 4 MG/2 ML VIAL IV PUSH (09:22)
[2021-12-28 09:54] LABS: Basophils Absolute Auto 0.1 K/mm3 (0.0-0.1); Basophils Percent Auto 0.6 % (0.2-1.2); Eosinophils Absolute Auto 0.1 K/mm3 (0-0.3); Eosinophils Percent Auto 0.9 % (0-4.4); Hematocrit 33.5 % (37.0-47.0); Hemoglobin 10.6 g/dL (12.0-15.0); Immature Granulocyte Absolute 0.02 K/mm3 (0.00-0.031); Immature Granulocyte Percent A 0.3 % (0-0.5); Lymphocytes Absolute Auto 1.93 K/mm3 (0.9-3.2); Lymphocytes Percent Auto 24.6 % (18.3-44.2); Mean Corpuscular HGB Conc 31.6 g/dl (32-36); Mean Corpuscular Hemoglobin 28.5 pg (26-34); Mean Corpuscular Volume 90.1 fl (80-100); Mean Platelet Volume 10.7 fl (7.4-10.4); Monocytes Absolute Auto 0.7 K/mm3 (0.1-0.6); Monocytes Percent Auto 8.5 % (2.6-8.5); Neutrophils Absolute Auto 5.1 K/mm3 (1.3-6.7); Neutrophils Percent Auto 65.1 % (45.5-73.1); Platelet Count Result 336 k/mm3 (150-375); Red Blood Count 3.72 M/mm3 (4.2-5.4); Red Cell Distribution Width 13.2 % (11.5-14.5); White Blood Count 7.9 K/mm3 (4.5-10.0)
[2021-12-28 10:12] LABS: Alanine Aminotransferase 13 U/L (6-35); Albumin Level 3.8 g/dL (3.5-5.1); Alkaline Phosphatase 91 U/L (38-126); Anion Gap 4 mmol/L (8-16); Aspartate Amino Transferase 18 U/L (14-36); Bilirubin,Total 0.4 mg/dL (0.2-1.3); Blood Urea Nitrogen 4 mg/dL (7-17); CRP 4.5 mg/dL (<1.0); Calcium 8.3 mg/dL (8.4-10.2); Carbon Dioxide 24 mmol/L (22-30); Chloride 109 mmol/L (98-107); Estimated CRCL calculation 144 ml/min; Estimated Glomerular Filt Rate > 60; Glucose 95 mg/dL (65-110); Lipase 702 U/L (23-300); Potassium 3.5 mmol/L (3.4-5.0); Sodium 137 mmol/L (137-145)
[2021-12-28 12:37] LABS: Appearance Urine Clear (Clear); Bilirubin Urine Negative (Negative); Blood Urine Negative (Negative); Color Urine Yellow (Yellow); Glucose Urine UA Negative (Negative); Ketones Urine 4+ mg/dL (Negative); Leukocyte Esterase Ur Negative LEU/UL (NEGATIVE); Nitrate Urine Negative (Negative); Protein Urine Negative (Negative); pH Urine 6.5 (5.0-9.0)
[2021-12-28 12:48] LABS: Bacteria Urine Trace /hpf; Mucus Urine Rare /lpf; RBC Urine 0-2 /hpf (0-2); Squamous Epithelial Cell Urine Rare /hpf (Few); WBC Urine 0-3 /hpf (0-3)
[2021-12-28 12:53] LABS: Add Urine Microscopic? YES
== END 2021-12-28 14:15 | disposition home or self-care (01) | DRG 282 ==
LOC: ANHED 11:51 → ANH3MEDSUR 12:41
PROVIDERS: Internal Medicine Gastroenterology; Admitting Provider Internal Medicine; Emergency Provider Emergency Medicine; Visit Provider Nurse Practitioner Family
DX: K85.80 Other acute pancreatitis without necrosis or infection (principal); K86.3 Pseudocyst of pancreas; K20.90 Esophagitis, unspecified without bleeding; Z87.442 Personal history of urinary calculi
CPT/HCPCS: 36415; 71046; 71275; 74176; 74177; 76705; 80053; 80061; 81001; 83690; 84484; 84703; 85025; 85380; 85610; 85730; 86038; 86140; 87491; 87591; 93005; 96361; 96374; 96375; 96376; 99285; A9270; C9113; G0378; G0379; J1170; J2270; J2405; J7030; Q9967

== ENCOUNTER 2023-02-24 09:29 | Emergency (ER) | payer OTHER, SELFPAY ==
--- NOTE | ~2023-02-24 | XR_ITS ---
EXAMINATION: XR ankle LT min 3V DATE: 02/24/2023 10:54 INDICATION: Left ankle pain, initial encounter TECHNIQUE: Anteroposterior, lateral, mortise, and additional oblique view of the ankle were obtained. COMPARISON: 05/15/2020 FINDINGS: Minimal healed tibial shaft fracture is noted. There is a subtle transverse lucency of the distal fibula at the level of the tibiotalar joint space. Bone alignment is normal. There is ankle so ft tissue swelling. A plantar calcaneal enthesophyte is noted. IMPRESSION: 1. Possible nondisplaced transverse fracture of the distal fibula at the level of the tibiotalar join t space. Correlate for tenderness at this site. Reviewed, dictated and finalized at location L. IMPRESSION: 1. Possible nondisplaced transverse fracture of the distal fibula at the level of the tibiotalar joint space. Correlate for tenderness at this site.
--- NOTE | ~2023-02-24 | US_ITS ---
EXAMINATION: US venous doppler [facility] DATE: 02/24/2023 11:47 INDICATION: Left lower limb pain and swelling TECHNIQUE: Cash scale images without and with compression and Doppler images of the left lower extrem ity veins were obtained. COMPARISON: None FINDINGS: The left common femoral vein, profunda femoral vein, femoral vein, popliteal vein, peroneal trunk, posterior tibial veins, and greater saphenous vein are patent. IMPRESSION: 1. Patent left lower extremity veins. No evidence of deep venous thrombosis. Reviewed, dictated and finalized at location L.
--- NOTE | ~2023-02-24 | XR_ITS ---
EXAMINATION: XR knee LT min 4V DATE: 02/24/2023 09:59 INDICATION: Left knee pain. TECHNIQUE: 4 views of left knee were obtained. COMPARISON: Left tibia and fibula radiographs 05/15/2020 FINDINGS: Bone alignment is normal. No fracture. There is mild tricompartmental osteoarthritis charac terized by tiny osteophytes. No joint space narrowing. No knee joint effusion. IMPRESSION: 1. Mild left knee osteoarthritis. Reviewed, dictated and finalized at location A.
[2023-02-24 09:32] VITALS: BP 138/81; PULSE 75; RESP 18; TEMP 36.8; O2SAT 100
--- NOTE | 2023-02-24 10:36 | ED.LOWEXIN ---
HPI - Extremity Injury (Lower) General Chief Complaint: Extremity Injury, Lower Stated Complaint: L KNEE INJURY S/P FALL Time Seen by Provider: 02/24/23 09:48 Source: patient Mode of arrival: ambulatory Limitations: no limitations History of Present Illness HPI Narrative: This is a 42-year-old female that presents to the emergency department for left knee pain after an injury 1 week ago. Reports she was walking up the steps and twisted and fell onto her left knee. Since she has had left knee pain and swelling. Also reports left ankle pain and swelling. Reports over the last couple days she has noted some calf cramping and swelling into her lower leg which prompted her to be seen. Denies fever, erythema, or numbness. Related Data Home Medications Medication Instructions Recorded Confirmed Baby Aspirin 81 mg PO DAILY 12/25/21 12/25/21 Allergies Allergy/AdvReac Type Severity Reaction Status Date / Time No Known Allergies Allergy Verified 02/24/23 09:37 Review of Systems Review of Systems: CONSTITUTIONAL: Denies fever CARDIOVASCULAR: Reports edema. Denies chest pain RESPIRATORY: Denies dyspnea. SKIN: Denies rash MUSCULOSKELETAL: Reports joint pain, and myalgia. NEUROLOGIC: Denies numbness All systems reviewed & are unremarkable except as noted in HPI and below PMFSH Past Medical History Medical History (Updated 02/24/23 @ 12:52 by Camila Wright PA-C) History of kidney stones Surgical History Surgical History History of delivery x2 History of removal of cyst neck Family History Family History Father , age 58 Diabetes mellitus Lymphoma Grandparent , age 93 Heart disease Cerebrovascular accident Social History Social History Smoking status: Never smoker Alcohol intake: never Substance use: never Living arrangements: with family Occupation/Education: occupation Additional occupation/education comments: Nurse Spiritual care concerns: No Exam Narrative: GENERAL: Well-appearing, well-nourished, and in no acute distress. HEAD: Normocephalic, atraumatic. EYES: EOMI. CHEST: No respiratory distress. HEART: Regular rate EXTREMITIES: Normal range of motion. 1+ pitting edema to the left lower leg. Normal DP pulse. Normal sensation. No erythema or warmth. Pain with valgus stress in the left knee. Mild swelling noted about the left lateral malleolus SKIN: Warm, dry, no rash. NEURO: No focal deficits. Alert and oriented x3. PSYCH: Normal mood and affect Course Course Emergency Course: Patient was updated on work-up and agrees with plan of care Vital Signs Vital signs: Vital Signs Temperature 98.2 F 02/24/23 09:32 Pulse Rate 75 02/24/23 09:32 Respiratory Rate 18 02/24/23 09:32 Blood Pressure 138/81 02/24/23 09:32 Pulse Oximetry 100 02/24/23 09:32 Oxygen Delivery Room Air 02/24/23 09:32 Temperature 98.2 F 02/24/23 09:32 Pulse Rate 89 02/24/23 11:46 Respiratory Rate 20 02/24/23 11:46 Blood Pressure 116/78 02/24/23 11:46 Pulse Oximetry 100 02/24/23 11:46 Oxygen Delivery Room Air 02/24/23 09:32 Procedures Orthopedic Splinting/Casting Injury #1: Splinting/Casting Date: 02/24/23 Splinting/Casting Time: 12:46 Side: left Lower Extremity Injury Location: ankle Lower Extremity Immobilizer: posterior splint Splint: customized in ED OCL: short leg Pre-Procedure Neuro Vascular Exam: normal Post-Procedure Neuro Vascular Exam: normal Other Orthopedic Equipment: crutches (Patient has crutches at home) Injury #2: Splinting/Casting Date: 02/24/23 Splinting/Casting Time: 12:47 Side: left Lower Extremity Injury Location: knee Lower
[2023-02-24 10:52] LABS: Basophils Absolute Auto 0.1 K/mm3 (0.0-0.1); Eosinophils Absolute Auto 0.1 K/mm3 (0-0.3); Eosinophils Percent Auto 1.6 % (0-4.4); Hematocrit 37.5 % (37.0-47.0); Immature Granulocyte Absolute 0.01 K/mm3 (0.00-0.031); Immature Granulocyte Percent A 0.1 % (0-0.5); Lymphocytes Absolute Auto 1.83 K/mm3 (0.9-3.2); Lymphocytes Percent Auto 26.4 % (18.3-44.2); Mean Corpuscular Hemoglobin 27.8 pg (26-34); Mean Platelet Volume 10.5 fl (7.4-10.4); Monocytes Absolute Auto 0.5 K/mm3 (0.1-0.6); Monocytes Percent Auto 7.2 % (2.6-8.5); Neutrophils Absolute Auto 4.4 K/mm3 (1.3-6.7); Neutrophils Percent Auto 63.7 % (45.5-73.1); Platelet Count Result 361 k/mm3 (150-375); Red Blood Count 4.31 M/mm3 (4.2-5.4); Red Cell Distribution Width 13.9 % (11.5-14.5); White Blood Count 6.9 K/mm3 (4.5-10.0)
[2023-02-24 11:02] LABS: Anion Gap 4 mmol/L (8-16); Blood Urea Nitrogen 13 mg/dL (7-17); Calcium 8.9 mg/dL (8.4-10.2); Carbon Dioxide 24 mmol/L (22-30); Chloride 109 mmol/L (98-107); Estimated CRCL calculation 129 ml/min; Estimated Glomerular Filt Rate > 60; Glucose 108 mg/dL (65-110); Potassium 3.7 mmol/L (3.4-5.0); Sodium 137 mmol/L (137-145)
[2023-02-24 11:04] LABS: INR 0.9; Prothrombin Time 12.8 Seconds (11.1-14.7)
[2023-02-24 11:05] LABS: Partial Thromboplastin Time 29.5 SECONDS (22.3-36.8)
[2023-02-24 11:46] VITALS: BP 116/78; PULSE 89; RESP 20; O2SAT 100
[2023-02-24] MEDS: ONDANSETRON HCL ODT 4 MG TABLET PO (12:16)
[2023-02-24] MEDS: HYDROcodone/acetaminophen (*CRX) 5-325 MG TABLET 1 TAB PO (12:17)
[2023-02-24 13:06] VITALS: BP 120/76; PULSE 80; RESP 20; O2SAT 99
== END 2023-02-24 13:13 | disposition home or self-care (01) ==
PROVIDERS: Emergency Provider Physician Assistant
DX: S82.832A Other fracture of upper and lower end of left fibula, initial encounter for closed fracture (principal); S83.92XA Sprain of unspecified site of left knee, initial encounter; W10.8XXA Fall (on) (from) other stairs and steps, initial encounter
CPT/HCPCS: 29515; 36415; 73564; 73610; 80048; 85025; 85610; 85730; 93971; 99284; A9270